=== PATIENT | male | born 1945 | race Caucasian/White ===

== ENCOUNTER 2023-02-09 18:58 | Inpatient (IN) | payer MEDICARE, OTHER ==
[~2023-02-09] VITALS: Ht 167.6 cm; Wt 77.4 kg
[2023-02-09] MEDS ORDERED: FINA-27 PO (19:16)
[2023-02-09] MEDS ORDERED: OxyCODONE HCL/ACETAMINOPHEN 5-325 MG TABLET PO ONE ×2 (19:45→21:00)
[2023-02-09 20:03] LABS: HEMATOCRIT 32.6 % (41-53); HEMOGLOBIN 10.5 g/dL (13.5-17.5); MEAN CORPUSCULAR HEMOGLOBIN 29.6 pg (26.0-34.0); MEAN CORPUSCULAR HGB CONC 32.2 G/dL (31.0-37.0); MEAN CORPUSCULAR VOLUME 92 fL (80-100); PLATELET COUNT (AUTO) 221 K/uL (150-450); RED BLOOD CELL COUNT(AUTO) 3.54 MIL/uL (4.50-5.90); RED CELL DISTRIBUTION WIDTH 15.8 % (11.5-14.5)
[2023-02-09 20:08] LABS: ANION GAP 7 mmol/L (8-16); CALCIUM, TOTAL 9.1 mg/dL (8.8-10.5); CARBON DIOXIDE 28 mmol/L (22-29); CHLORIDE 103 mmol/L (98-107); CREATININE 1.16 mg/dL (0.60-1.30); GLOMERULAR FILTR. RATE CALC > 60 mL/min (>60); GLUCOSE,RANDOM 98 mg/dL (70-110); POTASSIUM 3.8 mmol/L (3.5-5.1); SODIUM SERUM 138 mmol/L (136-145); UREA NITROGEN, BLOOD 19 mg/dL (7-18)
[2023-02-09 20:18] LABS: ALBUMIN 3.6 g/dL (3.4-5.0); ALKALINE PHOSPHATASE 72 U/L (46-116); ASPARTATE AMINOTRANSFERASE 15 U/L (15-37); BILIRUBIN,TOTAL 0.3 mg/dL (0.1-1.0); TOTAL PROTEIN, SERUM 6.7 g/dL (6.4-8.2)
[2023-02-09 20:24] LABS: B-TYPE NATRIURETIC PEPTIDE 34 pg/mL (0-100)
[2023-02-09 20:33] LABS: APPEARANCE,URINE HAZY (CLEAR); BILIRUBIN,URINE NEGATIVE (NEGATIVE); GLUCOSE, URINE (UA) NEGATIVE (NEGATIVE); KETONES,URINE NEGATIVE (NEGATIVE); LEUKOCYTE ESTERASE ,URINE LARGE (NEGATIVE); NITRATE,URINE POSITIVE (NEGATIVE); OCCULT BLOOD,URINE LARGE (NEGATIVE); PH,URINE 6.5 (5.0-8.0); PROTEIN,URINE 30-70 mg/dL (NEGATIVE); SPECIFIC GRAVITIY, URINE 1.013 (1.003-1.030); UROBILINOGEN,URINE <=1.0 mg/dL (<=1.0)
[2023-02-09 20:33] LABS: ALANINE AMINOTRANSFERASE 10 U/L (12-78)
[2023-02-09 20:44] LABS: BAND NEUTROPHILS % (MANUAL) 1 % (0-5); LYMPHOCYTES % (MANUAL) 88 % (22-44); MONOCYTES % (MANUAL) 1 % (2-9); REACTIVE LYMPHOCYTES 2 % (0-0); SEGMENTED NEUTROPHILS % 8 % (40-70)
[2023-02-09 20:48] LABS: BACTERIA,URINE Moderate /HPF (None Seen); SQUAMOUS EPITHELIAL CELL,UR None Seen /LPF (None Seen); WBC,URINE 51-100 /HPF (0-5)
[2023-02-09] MEDS ORDERED: CefTRIAXone 1 GM/DEXTROSE 50 ML IV ONE (21:00)
[2023-02-09] MEDS ORDERED: DEXAMETHASONE SOD PHOS 4 MG/ML 5 ML VIAL IVP ONE ×2 (21:45→22:15)
[2023-02-09] MEDS ORDERED: [UNRECOGNIZED DRUG - REMARK] CERV (22:00)
[2023-02-09] MEDS ORDERED: NALOXONE HCL 1 MG/ML 2 ML SYRINGE IVP PRN (22:00)
[2023-02-09] MEDS ORDERED: ACETAMINOPHEN 325 MG TABLET PO PRN (22:00)
[2023-02-09] MEDS: TAMSULOSIN HCL 0.4 MG CAPSULE PO SCH (22:17)
[2023-02-09] MEDS: MORPHINE SULFATE 4 MG/ML SYRINGE IVP PRN (23:52)
[2023-02-09] MEDS: ONDANSETRON HCL 4 MG/2 ML VIAL IVP PRN (23:52)
[2023-02-09] MEDS: HEPARIN SODIUM,PORCINE 5,000 UNITS/ML VIAL SQ SCH (23:52)
[2023-02-10 01:02] VITALS: BP 142/80
[2023-02-10] MEDS ORDERED: NICOTINE 21 MG/24 HOUR PATCH TD ONE (03:00)
[2023-02-10] MEDS ORDERED: PB/HYOSCY/ATR/SCOP/LIDO/MAALOX 55 ML BOTTLE PO ONE (03:00)
[2023-02-10 03:30] VITALS: BP 146/73
[2023-02-10] MEDS: MORPHINE SULFATE 4 MG/ML SYRINGE IVP PRN ×2 (03:53→08:25)
[2023-02-10 06:42] LABS: HEMATOCRIT 34.9 % (41-53); HEMOGLOBIN 11.3 g/dL (13.5-17.5); MEAN CORPUSCULAR HEMOGLOBIN 29.9 pg (26.0-34.0); MEAN CORPUSCULAR HGB CONC 32.3 G/dL (31.0-37.0); MEAN CORPUSCULAR VOLUME 93 fL (80-100); PLATELET COUNT (AUTO) 237 K/uL (150-450); RED BLOOD CELL COUNT(AUTO) 3.77 MIL/uL (4.50-5.90); RED CELL DISTRIBUTION WIDTH 16.1 % (11.5-14.5)
[2023-02-10 07:10] LABS: ANION GAP 8 mmol/L (8-16); CALCIUM, TOTAL 9.3 mg/dL (8.8-10.5); CARBON DIOXIDE 26 mmol/L (22-29); CHLORIDE 102 mmol/L (98-107); CREATININE 0.92 mg/dL (0.60-1.30); GLOMERULAR FILTR. RATE CALC > 60 mL/min (>60); GLUCOSE,RANDOM 162 mg/dL (70-110); POTASSIUM 4.2 mmol/L (3.5-5.1); SODIUM SERUM 136 mmol/L (136-145); UREA NITROGEN, BLOOD 15 mg/dL (7-18)
[2023-02-10 07:12] LABS: COVID AG,FIA SOURCE NASAL SWAB
[2023-02-10 07:34] VITALS: BP 133/68
[2023-02-10] MEDS: AZITHROMYCIN 500 MG/NS 250 ML IV SCH (08:24)
[2023-02-10] MEDS: HEPARIN SODIUM,PORCINE 5,000 UNITS/ML VIAL SQ SCH ×3 (08:25→23:14)
[2023-02-10] MEDS: DOCUSATE SODIUM 100 MG CAPSULE PO SCH ×2 (08:25→20:06)
[2023-02-10] MEDS ORDERED: SODIUM CHLORIDE 0.9% 500 ML IV ONE (08:30)
[2023-02-10 08:32] LABS: BAND NEUTROPHILS % (MANUAL) 0 % (0-5)
[2023-02-10 08:42] LABS: EOSINOPHILS % (MANUAL) 1 % (1-6); LYMPHOCYTES % (MANUAL) 85 % (22-44); MONOCYTES % (MANUAL) 1 % (2-9); SEGMENTED NEUTROPHILS % 13 % (40-70)
[2023-02-10] MEDS ORDERED: LORazepam 2 MG/ML VIAL IVP ONE (11:00)
[2023-02-10] MEDS: MORPHINE SULFATE 2 MG/ML SYRINGE IVP PRN ×2 (12:29→16:48)
[2023-02-10 15:35] VITALS: BP 133/75
[2023-02-10 19:55] VITALS: BP 127/69
[2023-02-10] MEDS: TAMSULOSIN HCL 0.4 MG CAPSULE PO SCH (20:06)
[2023-02-10] MEDS: CefTRIAXone 1 GM/DEXTROSE 50 ML IV SCH (20:06)
[2023-02-10] MEDS ORDERED: IOHEXOL 350 MG/ML 100 ML VIAL ONE (22:47)
[2023-02-10] MEDS ORDERED: SODIUM CHLORIDE 0.9% 100 ML ONE (22:47)
[2023-02-11] MEDS: MORPHINE SULFATE 2 MG/ML SYRINGE IVP PRN ×4 (01:26→22:51)
[2023-02-11 03:15] VITALS: BP 137/86
[2023-02-11] MEDS ORDERED: CloNIDine HCL 0.1 MG TABLET PO ONE (07:45)
[2023-02-11 07:49] VITALS: BP 176/99
[2023-02-11] MEDS: HEPARIN SODIUM,PORCINE 5,000 UNITS/ML VIAL SQ SCH ×3 (09:01→23:22)
[2023-02-11] MEDS: DOCUSATE SODIUM 100 MG CAPSULE PO SCH ×2 (09:01→20:18)
[2023-02-11] MEDS: AZITHROMYCIN 500 MG/NS 250 ML IV SCH (09:05)
[2023-02-11] MEDS ORDERED: LORazepam 2 MG/ML VIAL IVP ONE ×2 (13:30→15:15)
[2023-02-11] MEDS: DICLOFENAC SODIUM 1% 100 GM GEL [4GM] TP SCH ×2 (13:31→20:19)
[2023-02-11 16:18] VITALS: BP 157/108
[2023-02-11 19:52] VITALS: BP 128/64
[2023-02-11] MEDS: TAMSULOSIN HCL 0.4 MG CAPSULE PO SCH (20:18)
[2023-02-11] MEDS: CefTRIAXone 1 GM/DEXTROSE 50 ML IV SCH (20:18)
[2023-02-11] MEDS: ETHYL ALCOHOL 62% ANTISEPTIC NASAL SANITIZER 0.6 ML AMPUL NASAL SCH (20:18)
[2023-02-11] MEDS: GABAPENTIN 300 MG CAPSULE PO SCH (20:18)
[2023-02-12 04:37] VITALS: BP 135/70
[2023-02-12] MEDS: MORPHINE SULFATE 2 MG/ML SYRINGE IVP PRN ×2 (04:40→09:28)
[2023-02-12 08:05] VITALS: BP 130/74
[2023-02-12] MEDS: AZITHROMYCIN 500 MG/NS 250 ML IV SCH (08:14)
[2023-02-12] MEDS: DOCUSATE SODIUM 100 MG CAPSULE PO SCH ×2 (08:14→20:06)
[2023-02-12] MEDS: FINASTERIDE 5 MG TABLET PO SCH (08:14)
[2023-02-12] MEDS: GABAPENTIN 300 MG CAPSULE PO SCH ×2 (08:14→20:07)
[2023-02-12] MEDS: ETHYL ALCOHOL 62% ANTISEPTIC NASAL SANITIZER 0.6 ML AMPUL NASAL SCH ×2 (08:14→20:06)
[2023-02-12] MEDS: HEPARIN SODIUM,PORCINE 5,000 UNITS/ML VIAL SQ SCH ×2 (08:14→16:18)
[2023-02-12] MEDS: DICLOFENAC SODIUM 1% 100 GM GEL [4GM] TP SCH ×2 (08:15→20:06)
[2023-02-12] MEDS ORDERED: LORazepam 2 MG/ML VIAL IVP ONE (10:30)
[2023-02-12 16:00] VITALS: BP 129/73
[2023-02-12] MEDS: OxyCODONE HCL/ACETAMINOPHEN 5-325 MG TABLET PO PRN (18:41)
[2023-02-12] MEDS: CefTRIAXone 1 GM/DEXTROSE 50 ML IV SCH (20:06)
[2023-02-12 20:07] VITALS: BP 106/51
[2023-02-12] MEDS: TAMSULOSIN HCL 0.4 MG CAPSULE PO SCH (20:07)
[2023-02-13 00:04] VITALS: BP 111/58
[2023-02-13] MEDS: MORPHINE SULFATE 2 MG/ML SYRINGE IVP PRN ×3 (00:08→19:48)
[2023-02-13] MEDS: HEPARIN SODIUM,PORCINE 5,000 UNITS/ML VIAL SQ SCH ×4 (00:08→23:46)
[2023-02-13] MEDS: ONDANSETRON HCL 4 MG/2 ML VIAL IVP PRN (00:24)
[2023-02-13 04:01] VITALS: BP 115/61
[2023-02-13] MEDS: OxyCODONE HCL/ACETAMINOPHEN 5-325 MG TABLET PO PRN ×2 (06:58→11:15)
[2023-02-13] MEDS: AZITHROMYCIN 500 MG/NS 250 ML IV SCH (07:27)
[2023-02-13] MEDS: GABAPENTIN 300 MG CAPSULE PO SCH ×2 (08:07→20:52)
[2023-02-13] MEDS: DOCUSATE SODIUM 100 MG CAPSULE PO SCH ×2 (08:07→20:52)
[2023-02-13] MEDS: FINASTERIDE 5 MG TABLET PO SCH (08:07)
[2023-02-13] MEDS: ETHYL ALCOHOL 62% ANTISEPTIC NASAL SANITIZER 0.6 ML AMPUL NASAL SCH ×2 (08:07→20:52)
[2023-02-13 08:21] VITALS: BP 106/57
[2023-02-13] MEDS: DICLOFENAC SODIUM 1% 100 GM GEL [4GM] TP SCH ×2 (09:02→20:52)
[2023-02-13] MEDS ORDERED: LORazepam 2 MG/ML VIAL IVP ONE (13:45)
[2023-02-13 16:10] VITALS: BP 128/67
[2023-02-13 19:25] VITALS: BP 116/53
[2023-02-13] MEDS: TAMSULOSIN HCL 0.4 MG CAPSULE PO SCH (20:52)
[2023-02-13] MEDS: CefTRIAXone 1 GM/DEXTROSE 50 ML IV SCH (21:09)
[2023-02-14] MEDS: OxyCODONE HCL/ACETAMINOPHEN 5-325 MG TABLET PO PRN ×2 (03:15→11:42)
[2023-02-14 04:19] VITALS: BP 135/71
[2023-02-14] MEDS: MORPHINE SULFATE 2 MG/ML SYRINGE IVP PRN ×3 (04:28→14:44)
[2023-02-14 08:00] VITALS: BP 147/76
[2023-02-14] MEDS: DICLOFENAC SODIUM 1% 100 GM GEL [4GM] TP SCH (08:37)
[2023-02-14] MEDS: GABAPENTIN 300 MG CAPSULE PO SCH (08:37)
[2023-02-14] MEDS: FINASTERIDE 5 MG TABLET PO SCH (08:37)
[2023-02-14] MEDS: AZITHROMYCIN 500 MG/NS 250 ML IV SCH (08:37)
[2023-02-14] MEDS: DOCUSATE SODIUM 100 MG CAPSULE PO SCH (08:37)
[2023-02-14] MEDS: HEPARIN SODIUM,PORCINE 5,000 UNITS/ML VIAL SQ SCH ×2 (09:37→16:06)
[2023-02-14 15:21] VITALS: BP 155/66
== END 2023-02-14 17:40 | DRG 552 ==
LOC: EMS 19:01 → 6S 23:47
PROVIDERS: ADMIT Internal Medicine; ATTEND Internal Medicine
DX: M48.061 Spinal stenosis, lumbar region without neurogenic claudication (principal); N39.0 Urinary tract infection, site not specified; C95.90 Leukemia, unspecified not having achieved remission; M47.817 Spondylosis without myelopathy or radiculopathy, lumbosacral region; M47.897 Other spondylosis, lumbosacral region; Z66 Do not resuscitate; M47.812 Spondylosis without myelopathy or radiculopathy, cervical region; G89.29 Other chronic pain; M48.02 Spinal stenosis, cervical region; M85.80 Other specified disorders of bone density and structure, unspecified site; N40.0 Benign prostatic hyperplasia without lower urinary tract symptoms; Z79.899 Other long term (current) drug therapy; Z91.018 Allergy to other foods; Z87.891 Personal history of nicotine dependence; Z91.81 History of falling; Z99.3 Dependence on wheelchair; Z20.822 Contact with and (suspected) exposure to COVID-19
CPT/HCPCS: 70551; 71045; 72125; 72128; 72133; 72141; 80048; 80053; 81001; 83735; 83880; 84484; 85025; 87081; 87086; 87186; 93005; 97162; 97167; 97530; 97535; 99285; J0456; J0696; J1100; J1644; J2060; J2270; J2405; J7040; J7050; Q9967; 36415-L1; 36415-TC